=== PATIENT | female | born 2000 | race Hispanic/Latino ===

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

== ENCOUNTER 2019-10-11 09:00 | Outpatient (RCR) | payer OTHER ==
[~2019-10-11 09:00] MED LIST: LAMO100T3 PO; SERO1TAB PO; XANA0.25 PO
== END 2019-11-07 | disposition home or self-care (01) ==
LOC: M OT 09:00
PROVIDERS: ATTEND Physician Assistant
DX: M25.531 Pain in right wrist (principal)

== ENCOUNTER 2021-04-25 08:15 | Outpatient (RCR) | payer OTHER | END 2021-05-06 | LOC: M OT 08:15 | PROVIDERS: ATTEND Pediatrics | DX: G56.03 Carpal tunnel syndrome, bilateral upper limbs (principal) ==

== ENCOUNTER → 2022-04-10 | Outpatient (CLI) | payer OTHER | LOC: M SOG 07:53 | PROVIDERS: ATTEND Physician Assistant | DX: M25.531 Pain in right wrist (principal); M25.532 Pain in left wrist ==

== ENCOUNTER 2022-12-16 14:37 | Emergency (ER) | payer OTHER ==
[~2022-12-16] VITALS: Ht 162.6 cm; Wt 71.2 kg
[~2022-12-16 14:37] MED LIST changes: +VALA500T5 PO
[2022-12-16 15:38] LABS: BASO % 0.5 % (0.0-1.0); EOS # 0.1 10^3/uL (0.0-0.5); EOS % 1.1 % (0.0-3.0); HEMATOCRIT 35.3 % (36.0-47.0); HEMOGLOBIN 11.9 g/dl (12.0-15.5); LYMPH # 2.8 10^3/uL (1.5-5.0); LYMPH % 42.4 % (24.0-44.0); MEAN CORPUSCULAR HEMOGLOBIN 31.3 pg (27.0-33.0); MEAN CORPUSCULAR HGB CONC 33.7 g/dl (32.0-36.5); MEAN CORPUSCULAR VOLUME 92.9 fl (80.0-96.0); MONO # 0.3 10^3/uL (0.0-0.8); MONO % 5.1 % (2.0-8.0); NEUTROPHILS # 3.4 10^3/uL (1.5-8.5); NEUTROPHILS % 50.7 % (36.0-66.0); PLATELET COUNT, AUTOMATED 180 10^3/uL (150-450); WHITE BLOOD COUNT 6.6 10^3/uL (4.0-10.0)
[2022-12-16 15:58] LABS: HCG, SERUM QUALITATIVE NEGATIVE (NEGATIVE); LIPASE 28 U/L (12-53)
[2022-12-16 16:00] LABS: ALBUMIN 3.9 G/DL (3.2-5.2); ALKALINE PHOSPHATASE 68 U/L (46-116); ALT/SGPT 17 U/L (7.0-40); AST/SGOT 15 U/L (<34); BILIRUBIN,DIRECT 0.2 MG/DL (<0.4); BILIRUBIN,TOTAL 0.4 MG/DL (0.3-1.2); BLOOD UREA NITROGEN 8 MG/DL (9-23); CALCIUM LEVEL 8.5 MG/DL (8.5-10.1); CARBON DIOXIDE LEVEL 28 MMOL/L (20-31); CHLORIDE LEVEL 109 MMOL/L (98-107); CREATININE FOR GFR 0.65 MG/DL (0.55-1.30); GLOMERULAR FILTRATION RATE > 60.0 (>60); GLUCOSE, FASTING 87 MG/DL (60-100); POTASSIUM SERUM 4.2 MMOL/L (3.5-5.1); SODIUM LEVEL 140 MMOL/L (136-145); TOTAL PROTEIN 6.4 G/DL (5.7-8.2)
[2022-12-16] MEDS ORDERED: ERGO500029 (16:51)
[2022-12-16] MEDS ORDERED: VALA500T5 (16:51)
[2022-12-16] MEDS ORDERED: ACET500P3 PO (16:52)
[2022-12-16 19:13] VITALS: BP 131/78; TEMP 97; O2SAT 100
== END 2022-12-16 19:14 | disposition home or self-care (01) ==
LOC: M ED 14:37
DX: N83.202 Unspecified ovarian cyst, left side (principal); Z86.19 Personal history of other infectious and parasitic diseases; F41.9 Anxiety disorder, unspecified; F31.9 Bipolar disorder, unspecified; F32.A Depression, unspecified; F17.290 Nicotine dependence, other tobacco product, uncomplicated; F12.90 Cannabis use, unspecified, uncomplicated

== ENCOUNTER → 2023-02-24 | Outpatient (CLI) | payer OTHER ==
[~2023-02-24] MED LIST changes: +ACET500P3 PO; +ERGO500029; +VALA500T5
== END ==
LOC: M WHC 07:25
PROVIDERS: ATTEND Nurse Practitioner Family
DX: N83.202 Unspecified ovarian cyst, left side (principal)

== ENCOUNTER → 2023-04-06 | Outpatient (REF) | payer OTHER ==
[2023-04-06 17:35] LABS: ALBUMIN 3.9 G/DL (3.2-5.2); ALKALINE PHOSPHATASE 63 U/L (46-116); ALT/SGPT 17 U/L (7.0-40); AST/SGOT 17 U/L (<34); BILIRUBIN,TOTAL 0.4 MG/DL (0.3-1.2); BLOOD UREA NITROGEN 10 MG/DL (9-23); CALCIUM LEVEL 8.8 MG/DL (8.5-10.1); CARBON DIOXIDE LEVEL 27 MMOL/L (20-31); CHLORIDE LEVEL 108 MMOL/L (98-107); CREATININE FOR GFR 0.65 MG/DL (0.55-1.30); GLOMERULAR FILTRATION RATE > 60.0 (>60); GLUCOSE, FASTING 81 MG/DL (60-100); POTASSIUM SERUM 4.6 MMOL/L (3.5-5.1); SODIUM LEVEL 140 MMOL/L (136-145); THYROID STIMULATING HORMONE 1.115 uIU/ML (0.55-4.78); TOTAL PROTEIN 6.9 G/DL (5.7-8.2)
== END ==
LOC: M LAB REF 16:28
PROVIDERS: ATTEND Pediatrics
DX: B35.0 Tinea barbae and tinea capitis (principal)

== ENCOUNTER → 2023-04-25 | Outpatient (REF) | payer OTHER ==
[2023-04-25 19:26] LABS: APPEARANCE, URINE CLEAR (CLEAR); BACTERIA, URINE AUTO 1+ (NEGATIVE); BILIRUBIN, URINE AUTO NEGATIVE (NEGATIVE); BLOOD, URINE BLOOD NEGATIVE (NEGATIVE); COLOR, URINE STRAW (YELLOW); GLUCOSE, URINE (UA) AUTO NEGATIVE (NEGATIVE); KETONE, URINE AUTO NEGATIVE (NEGATIVE); LEUKOCYTE ESTERASE, URINE AUTO TRACE (NEGATIVE); MUCUS, URINE SMALL (NEGATIVE); NITRITE, URINE AUTO NEGATIVE (NEGATIVE); PROTEIN, URINE AUTO NEGATIVE (NEGATIVE); RBC, URINE AUTO 1 /HPF (0-3); SPECIFIC GRAVITY URINE AUTO 1.011 (1.002-1.035); SQUAMOUS EPITHELIAL CELL UR AU 3 /HPF (0-6); UROBILINOGEN, URINE AUTO 0.2 mg/dL (0.0-2.0); WBC, URINE AUTO 0 /HPF (0-3)
== END ==
LOC: M LAB REF 18:29
PROVIDERS: ATTEND Physician Assistant Medical
DX: N39.0 Urinary tract infection, site not specified (principal)

== ENCOUNTER → 2023-05-01 | Outpatient (REF) | payer OTHER ==
[2023-05-01 21:01] LABS: GC DNA AMPLIFICATION NEGATIVE (NEGATIVE)
== END ==
LOC: M LAB REF 16:13
PROVIDERS: ATTEND Pediatrics
DX: Z72.51 High risk heterosexual behavior (principal)

== ENCOUNTER 2023-11-04 14:35 | Emergency (ER) | payer OTHER ==
[~2023-11-04] VITALS: Ht 162.6 cm; Wt 70.2 kg
[2023-11-04] MEDS: KETOROLAC 30 MG/ML 1ML VIAL IV ONE (18:15)
[2023-11-04 18:28] LABS: BASO % 0.2 % (0.0-1.0); EOS # 0.1 10^3/uL (0.0-0.5); EOS % 0.7 % (0.0-3.0); HEMATOCRIT 36.1 % (36.0-47.0); HEMOGLOBIN 12.5 g/dl (12.0-15.5); LYMPH % 22.5 % (24.0-44.0); MEAN CORPUSCULAR HEMOGLOBIN 31.2 pg (27.0-33.0); MEAN CORPUSCULAR HGB CONC 34.6 g/dl (32.0-36.5); MONO # 0.4 10^3/uL (0.0-0.8); MONO % 4.4 % (2.0-8.0); NEUTROPHILS # 6.4 10^3/uL (1.5-8.5); PLATELET COUNT, AUTOMATED 204 10^3/uL (150-450); RED BLOOD COUNT 4.01 10^6/uL (4.00-5.40); WHITE BLOOD COUNT 8.8 10^3/uL (4.0-10.0)
[2023-11-04 18:52] LABS: LIPASE 30 U/L (12-53)
[2023-11-04 18:54] LABS: ALKALINE PHOSPHATASE 69 U/L (46-116); ALT/SGPT 18 U/L (7.0-40); AST/SGOT 20 U/L (<34); BILIRUBIN,DIRECT < 0.1 MG/DL (<0.4); BILIRUBIN,TOTAL 0.3 MG/DL (0.3-1.2); BLOOD UREA NITROGEN 11 MG/DL (9-23); CARBON DIOXIDE LEVEL 26 MMOL/L (20-31); CHLORIDE LEVEL 107 MMOL/L (98-107); CREATININE FOR GFR 0.68 MG/DL (0.55-1.30); GLOMERULAR FILTRATION RATE > 60.0 (>60); GLUCOSE, FASTING 102 MG/DL (60-100); POTASSIUM SERUM 4.2 MMOL/L (3.5-5.1); SODIUM LEVEL 137 MMOL/L (136-145); TOTAL PROTEIN 6.9 G/DL (5.7-8.2)
[2023-11-04 18:55] LABS: HCG, SERUM QUALITATIVE NEGATIVE (NEGATIVE)
[2023-11-04] MEDS ORDERED: ISOVUE-370 76% 100ML VIAL As Ordered ONE (19:28)
[2023-11-04] MEDS ORDERED: MIRA3350 PO (20:17)
[2023-11-04 20:21] VITALS: BP 105/72; TEMP 96.1; O2SAT 99
== END 2023-11-04 20:29 | disposition home or self-care (01) ==
LOC: M ED 14:35
DX: K59.00 Constipation, unspecified (principal); B00.9 Herpesviral infection, unspecified; Z87.42 Personal history of other diseases of the female genital tract; Z79.1 Long term (current) use of non-steroidal anti-inflammatories (NSAID); Z79.899 Other long term (current) drug therapy
CPT/HCPCS: 74177; 76856; 80048; 80076; 81001; 83690; 84703; 85025; 93976; 96374; 99284; J1885; Q9967

== ENCOUNTER → 2025-01-02 | Outpatient (REF) | payer OTHER ==
[~2025-01-02] MED LIST changes: +MIRA3350 PO
[2025-01-02 12:41] LABS: ESTIMATED AVERAGE GLUCOSE 111.0 MG/DL (60-110)
[2025-01-02 13:01] LABS: CHOLESTEROL LEVEL 144.0 MG/DL (<200); CHOLESTEROL RISK RATIO 1.95 (<5); LDL CHOLESTEROL 60.4 MG/DL (<100); NON-HDL-C 70.2 MG/DL; TRIGLYCERIDES LEVEL 49.0 MG/DL (<150)
== END ==
LOC: M LAB REF 11:59
PROVIDERS: ATTEND Pediatrics
DX: E66.3 Overweight (principal); Z68.26 Body mass index [BMI] 26.0-26.9, adult